=== PATIENT | female | born 1990 | race Two or more races ===

== ENCOUNTER 2018-02-14 21:14 | Emergency (ER) | payer BC, OTHER ==
[~2018-02-14] VITALS: Ht 167.6 cm; Wt 56.7 kg
--- NOTE | 2018-02-14 21:14 | NUR ---
BIB SELF; "ANXIETY/ PANIC ATTACK WITH CHEST DISCOMFORT" VSS NO ACUTE DISTRESS AT THIS TIME. ALERT AND ORIENTED X3 ABLE TO MAKE NEEDS KNOWN. SKIN WARM AND INTACT. BREATHING WNL WITH ADEQUATE CHEST RISE/FALL.
--- NOTE | 2018-02-14 21:15 | NUR ---
ER PA AT BEDSIDE
[2018-02-14 22:18] VITALS: BP 111/79
== END 2018-02-14 22:19 | disposition home or self-care (01) ==
LOC: ER 21:15
DX: R07.89 Other chest pain (principal); F41.9 Anxiety disorder, unspecified; F32.9 Major depressive disorder, single episode, unspecified
CPT/HCPCS: 71045; 93005; 99284; A4606; Z7610